=== PATIENT | female | born 1975 | race Caucasian/White ===

== ENCOUNTER 2019-09-12 13:07 | Emergency (ER) | payer OTHER ==
[~2019-09-12] VITALS: Ht 165.1 cm; Wt 109.5 kg
--- NOTE | 2019-09-12 13:46 | NUR ---
FIRST CONTACT WITH PT. PT C/O INCR LETHARGY/FATIGUE, HEMATURIA/INCR URINATION, DIARRHEA, FLANK PAIN SEEN AT US SAT FOR UTI/RX FOR KEFLEX. PT'S AOX4. RESPS EVEN AND UNLABORED. BP/SPO2 MONITORS IN PLACE. CALL LIGHT WITHIN REACH. PA AT BEDSIDE TO EVALUATE AT THIS TIME.
--- NOTE | 2019-09-12 13:46 | NUR ---
PT AMB TO BR WITH STEADY GAIT. URINE CUP GIVEN.
--- NOTE | 2019-09-12 13:51 | NUR ---
BG 83 AT THIS TIME. PA NOTIFIED.
--- NOTE | 2019-09-12 13:51 | NUR ---
URINE COLLECTED AND UA SENT.
[2019-09-12 14:12] LABS: MICROSCOPIC AUTO
[2019-09-12 14:22] LABS: ALANINE AMINOTRANSFERASE 28 U/L (12-78); ALBUMIN 3.8 g/dL (3.4-5.0); ANION GAP 8 mmol/L (5-15); CALCIUM 9.3 mg/dL (8.5-10.1); CHLORIDE 105 mmol/L (98-107); CREATININE 0.91 mg/dL (0.55-1.02)
[2019-09-12 14:23] LABS: BASOPHILS # (AUTO) 0.05 x10^3/uL (0-0.1); BASOPHILS % (AUTO) 1 % (0-1); EOSINOPHILS # (AUTO) 0.28 x10^3/uL (0-0.4); EOSINOPHILS % (AUTO) 4 % (1-7); LYMPHOCYTES # (AUTO) 1.21 x10^3/uL (1-3.4); LYMPHOCYTES % (AUTO) 18 % (22-44); MD NO; MEAN CORPUSCULAR HEMOGLOBIN 33.3 pg (27.0-34.8); MEAN CORPUSCULAR HGB CONC 33.9 g/dL (32.4-35.8); MEAN CORPUSCULAR VOLUME 98.3 fL (80-100); MEAN PLATELET VOLUME 8.2 fL (7.4-10.4); MONOCYTES # (AUTO) 0.48 x10^3/uL (0.2-0.8); MONOCYTES % (AUTO) 7 % (2-9); NEUTROPHILS # (AUTO) 4.84 x10^3/uL (1.8-6.8); NEUTROPHILS % (AUTO) 71 % (42-75); PLATELET COUNT 228 x10^3/uL (130-400); RED BLOOD COUNT 4.39 x10^6/uL (3.82-5.3); RED CELL DISTRIBUTION WIDTH 12.6 % (9.6-15.2)
[2019-09-12 14:24] LABS: ALKALINE PHOSPHATASE 51 U/L (45-117); BILIRUBIN,TOTAL 0.5 mg/dL (0.2-1.0); TOTAL PROTEIN 7.6 g/dL (6.4-8.2)
[2019-09-12 14:57] VITALS: BP 128/85
--- NOTE | 2019-09-12 14:57 | NUR ---
PT AMB TO BR WITH STEADY GAIT AT THIS TIME.
[2019-09-12] MEDS ORDERED: SODIUM CHLORIDE FLUSH 10ML SYR IVF ONE (15:00)
--- NOTE | 2019-09-12 15:11 | NUR ---
PT BACK TO ROOM FROM WITH STEADY GAIT AT THIS TIME.
--- NOTE | 2019-09-12 15:44 | NUR ---
Patient given discharge instructions and they have confirmed that they understand the instructions. Patient ambulatory with steady gait.
== END 2019-09-12 15:46 | disposition home or self-care (01) ==
LOC: ED 15:30
DX: K52.9 Noninfective gastroenteritis and colitis, unspecified (principal); J45.909 Unspecified asthma, uncomplicated
CPT/HCPCS: 74176; 80053; 81001; 82962; 83690; 85025; 99284

== ENCOUNTER → 2019-11-30 | Outpatient (CLI) | payer OTHER | END | disposition home or self-care (01) | LOC: CFH 15:06 | PROVIDERS: ATTEND Nurse Practitioner Family | DX: N60.01 Solitary cyst of right breast (principal); N63.10 Unspecified lump in the right breast, unspecified quadrant | CPT/HCPCS: 76642; 77065 ==